=== PATIENT | female | born 1970 | race Caucasian/White ===

== ENCOUNTER 2017-05-15 12:06 | Emergency (ER) | payer MEDICAID, OTHER ==
[~2017-05-15] VITALS: Ht 157.5 cm; Wt 89.0 kg
[2017-05-15 12:10] VITALS: Ht 157.5 cm; Wt 89.0 kg
[2017-05-15] MEDS ORDERED: SOD CHLORIDE 0.9% 500 ML IV STA (14:04)
[2017-05-15] MEDS ORDERED: HYDROmorphONE 1 MG/ML SYG IV STA (14:04)
[2017-05-15] MEDS ORDERED: ONDANSETRON 4 MG INJ IV STA (14:04)
[2017-05-15 15:24] LABS: ADD UMIC NO; UR ASCORBIC ACID NEGATIVE (NEGATIVE); UR BILIRUBIN (Dip) NEGATIVE (NEGATIVE); UR BLOOD (Dip) NEGATIVE (NEGATIVE); UR CLARITY CLEAR (CLEAR); UR COLOR STRAW (YELLOW); UR GLUCOSE (Dip) NEGATIVE (NEGATIVE); UR KETONES (Dip) NEGATIVE (NEGATIVE); UR LEUKOCYTE ESTERASE (Dip) NEGATIVE Leu/ul (NEGATIVE); UR NITRITE (Dip) NEGATIVE (NEGATIVE); UR SPECIFIC GRAVITY (Dip) 1.006 (1.003-1.030); UR TOTAL PROTEIN (Dip) NEGATIVE (NEGATIVE); UR UROBILINOGEN (Dip) NEGATIVE (NEGATIVE)
[2017-05-15 15:39] LABS: BASOPHIL # 0.1 10^3/ul (0.0-0.1); BASOPHILS % 0.5 % (0.0-2.0); EOSINOPHILS # 0.3 10^3/ul (0.0-0.5); EOSINOPHILS % 2.5 % (0.0-7.0); HEMATOCRIT 40.6 % (37.0-47.0); HEMOGLOBIN 13.7 g/dl (12.0-16.0); LYMPHOCYTES # 3.6 10^3/ul (0.8-2.9); LYMPHOCYTES % 36.4 % (15.0-51.0); MEAN CORPUSCULAR HEMOGLOBIN 30.2 pg (29.0-33.0); MEAN CORPUSCULAR HGB CONC 33.7 g/dl (32.0-37.0); MEAN CORPUSCULAR VOLUME 89.4 fl (82.0-101.0); MEAN PLATELET VOLUME 10.1 fl (7.4-10.4); MONOCYTE # 0.6 10^3/ul (0.3-0.9); MONOCYTES % 6.5 % (0.0-11.0); NEUTROPHIL # 5.3 10^3/ul (1.6-7.5); NEUTROPHILS % 53.8 % (39.0-77.0); PLATELET COUNT 287 10^3/UL (140-415); RED BLOOD COUNT 4.54 10^6/ul (4.20-5.40); RED CELL DISTRIBUTION WIDTH 13.3 % (11.5-14.5); WHITE BLOOD COUNT 9.8 10^3/ul (4.8-10.8)
[2017-05-15 15:59] LABS: ALBUMIN 4.5 g/dl (3.3-4.9); ALBUMIN/GLOBULIN RATIO 1.28; CALCIUM 9.3 mg/dl (8.4-10.2); CREATININE 0.74 mg/dl (0.44-1.00); POTASSIUM 3.8 mmol/L (3.5-5.1)
[2017-05-15] MEDS ORDERED: SOD CHLORIDE 0.9% 100 ML ONE (16:42)
[2017-05-15] MEDS ORDERED: IOHEXOL 300MG/ML 150 ML BTL ONE (16:42)
--- NOTE | 2017-05-15 17:05 | RADRPT ---
PROCEDURE: CT Abdomen and Pelvis with contrast. CLINICAL INDICATION: Right lower quadrant pain TECHNIQUE: CT scan of the abdomen and pelvis with contrast was performed on a multi-detector high- resolution CT scanner. The patient was scanned following the uncomplicated intravenous administrati on of 100 cc of Omnipaque 300. Coronal and sagittal reformatted images were obtained from the axial source images. Images were reviewed on a high-resolution PACS workstation. The total exam CTDI equa ls 14.95 mGy and the total exam DLP equals 843.44 mGy-cm. One or more of the following dose reduction techniques were used: Automated exposure control. Adjustment of the mA and/or kV according to patient size. Use of iterative reconstruction technique. COMPARISON: None. FINDINGS: CT abdomen: The lung bases are clear. The heart size is normal, without pericardial thickening or effusion. There is hepatomegaly with fatty infiltration. The spleen is normal in size and homogeneous in densi ty. The stomach is partially collapsed, but is grossly unremarkable. The pancreas as visualized is normal. The gallbladder is unremarkable. There is no evidence for biliary dilatation. The adrena l glands are symmetric and normal. The kidneys are symmetrically unremarkable as well. No renal ca lculus or obstructive uropathy or mass lesion is seen. The aorta is of normal caliber. There is no retroperitoneal lymphadenopathy. The nazario hepatis ny on is clear. The bowel and mesentery, as visualized, are equally unremarkable. CT pelvis: The small bowel loops situated within the pelvis are unremarkable. The appendix is normal. There is approximately 2.1 cm fat density lesion in the right adnexa. The pelvic sidewalls and inguinal ny ons are clear. The sigmoid colon and rectum are unremarkable. No mass, lymphadenopathy, or free fl uid is seen. No acute inflammation is seen. The bladder is normal. The surrounding osseous structu res are unremarkable. No osteolytic or osteoblastic lesion is detected. IMPRESSION: 1. No concerning mass, lymphadenopathy, or focal acute inflammatory process is identified. 2. Normal appendix. 3. Hepatomegaly with fatty infiltration. 4. Right adnexal small dermoid cyst. RPTAT: BB .Teja Smith MD, MD Date Time Electronically viewed and signed by .Teja Smith MD, on 05/15/2017 17:04 .O/
[2017-05-15] MEDS ORDERED: HYDR-902 PO (17:30)
[2017-05-15] MEDS ORDERED: IBUP800T25 PO (17:30)
--- NOTE | 2017-05-15 17:33 | ERD ---
ER Documentation Chief Complaint Date/Time DATE: 05/15/17 TIME: 17:30 Chief Complaint AP X 9 DAYS, RAD RIGHT LEG AND BACK, SEEN AT [facility] C/O SAME HPI This is a 46-year-old female complains of right lower quadrant pain described as dull and sometimes sharp and radiates down to the right thigh for the past week. She has no nausea vomiting diarrhea no fever no anorexia. Pain is sometimes worse with walking. She has no chest pain or shortness of breath no dysuria or hematuria. Patient was seen in outside emergency department earlier in the week for the same symptoms but had no diagnosis ROS All systems reviewed and are negative except as per history of present illness. Medications Home Meds Active Scripts Ibuprofen* (Motrin*) 800 Mg Tab, 800 MG PO Q6H Y for PAIN AND OR ELEVATED TEMP, #30 TAB Prov:CHANELLE PATEL DO 05/15/17 Hydrocodone/Acetaminophen ([place] 10-325 Tablet) 1 Each Tablet, 1 TAB PO Q6H Y for PAIN, #20 TAB Prov:CHANELLE PATEL DO 05/15/17 PMhx/Soc Medical and Surgical Hx: pt denies Medical Hx, pt denies Surgical Hx History of Surgery: No Anesthesia Reaction: No Hx Neurological Disorder: No Hx Respiratory Disorders: No Hx Cardiac Disorders: No Hx Psychiatric Problems: No Hx Miscellaneous Medical Probl: No Hx Alcohol Use: No Hx Substance Use: No Hx Tobacco Use: No Smoking Status: Never smoker FmHx Family History: No coronary disease Physical Exam Vitals Vital Signs Date Time Temp Pulse Resp B/P Pulse Ox O2 Delivery O2 Flow Rate FiO2 05/15/17 12:10 98.1 79 20 149/79 99 Physical Exam Const: Well-developed, well-nourished Head: Atraumatic, normocephalic Eyes: Normal Conjunctiva, PERRLA, EOMI, normal sclera, no nystagmus ENT: Normal External Ears, Nose and Mouth, moist mucus membranes. Neck: Full range of motion. No meningismus, no lymphadenopathy. Resp: Clear to auscultation bilaterally, no wheezing, rhonchi, rales Cardio: Regular rate and rhythm, no murmurs, S1 S2 present Abd: Soft, may be mild to moderate right lower quadrant tenderness right adnexal tenderness, non distended. Normal bowel sounds, no guarding or rebound, no pulsitile abdominal masses or bruits Skin: No petechiae or rashes, no ecchymosis , no maculopapular rash Back: No midline or flank tenderness Ext: No cyanosis, or edema, FROM x 4, normal inspection, neurovascularly intact x 4 Neur: Awake and alert, STR 5/5 x 4, sensation intact x 4, no focal findings, cerebellum intact Psych: Normal Mood and Affect Result Diagram: 05/15/17 1500 05/15/17 1500 Results 24 hrs Laboratory Tests Test 05/15/17 14:55 05/15/17 15:00 Urine Color STRAW Urine Clarity CLEAR Urine pH 6.0 Urine Specific [place] 1.006 Urine Ketones NEGATIVEmg/dL Urine Nitrite NEGATIVEmg/dL Urine Bilirubin NEGATIVEmg/dL Urine Urobilinogen NEGATIVEmg/dL Urine Leukocyte Esterase NEGATIVELeu/ul Urine Hemoglobin NEGATIVEmg/dL Urine Glucose NEGATIVEmg/dL Urine Total Protein NEGATIVEmg/dl White Blood Count 9.810^3/ul Red Blood Count 4.5410^6/ul Hemoglobin 13.7g/dl Hematocrit 40.6% Mean Corpuscular Volume 89.4fl Mean Corpuscular Hemoglobin 30.2pg Mean Corpuscular Hemoglobin Concent 33.7g/dl Red Cell Distribution Width 13.3% Platelet Count 35472^3/UL Mean Platelet Volume 10.1fl Neutrophils % 53.8% Lymphocytes % 36.4% Monocytes % 6.5% Eosinophils % 2.5% Basophils % 0.5% Nucleated Red Blood Cells % 0.0/100WBC Neutrophils # 5.310^3/ul Lymphocytes # 3.610^3/ul Monocytes # 0.610^3/ul Eosinophils # 0.310^3/ul Basophils # 0.110^3/ul Nucleated Red Blood Cells # 0.010^3/ul Sodium Level 142mmol/L Potassium Level 3.8mmol/L Chloride Level 105mmol/L Carbon Dioxide Level 27mmol/L Anion Gap 14 Blood Urea Nitrogen 12mg/dl Creatinine 0.74mg/dl Glucose Level 87mg/dl Calcium Level 9.3mg/dl Total Bilirubin 0.0mg/dl Direct Bilirubin 0.00mg/dl Indirect Bilirubin 0.0mg/dl Aspartate Amino Transf (AST/SGOT) 25IU/L Alanine Aminotransferase (ALT/SGPT) 63IU/L Alkaline Phosphatase 81IU/L Total Protein 8.0g/dl Albumin 4.5g/dl Globulin 3.50g/dl Albumin/Globulin Ratio 1.28 Current Medications Medications (Trade) Dose Ordered Sig/Tea Route PRN Reason Start Time Stop Time Status Last Admin Dose Admin Sodium Chloride (NS) 500 ml @ 500 mls/hr Q1H STAT IV 05/15/17 14:04 05/15/17 15:03 DC 05/15/17 15:06 Hydromorphone HCl (Dilaudid) 1 mg ONCE STAT IV 05/15/17 14:04 05/15/17 14:06 DC 05/15/17 15:07 Ondansetron HCl (Zofran Inj) 4 mg ONCE STAT IV 05/15/17 14:04 05/15/17 14:06 DC 05/15/17 15:07 IV Flush 10 ml 10 ml STK-MED ONCE .ROUTE 05/15/17 16:42 05/15/17 16:43 DC 05/15/17 17:18 Sodium Chloride (NS) 100 ml @ ud STK-MED ONCE .ROUTE 05/15/17 16:42 05/15/17 16:43 DC 05/15/17 17:18 Iohexol (Omnipaque 300mg/ ml) 150 ml STK-MED ONCE .ROUTE 05/15/17 16:42 05/15/17 16:43 DC 05/15/17 17:18 Procedures/MDM PROCEDURE: CT Abdomen and Pelvis with contrast. CLINICAL INDICATION: Right lower quadrant pain TECHNIQUE: CT scan of the abdomen and pelvis with contrast was performed on a multi-detector high-resolution CT scanner. The patient was scanned following the uncomplicated intravenous administration of 100 cc of Omnipaque 300. Coronal and sagittal reformatted images were obtained from the axial source images. Images were reviewed on a high-resolution PACS workstation. The total exam CTDI equals 14.95 mGy and the total exam DLP equals 843.44 mGy-cm. One or more of the following dose reduction techniques were used: Automated exposure control. Adjustment of the mA and/or kV according to patient size. Use of iterative reconstruction technique. COMPARISON: None. FINDINGS: CT abdomen: The lung bases are clear. The heart size is normal, without pericardial thickening or effusion. There is hepatomegaly with fatty infiltration. The spleen is normal in size and homogeneous in density. The stomach is partially collapsed, but is grossly unremarkable. The pancreas as visualized is normal. The gallbladder is unremarkable. There is no evidence for biliary dilatation. The adrenal glands are symmetric and normal. The kidneys are symmetrically unremarkable as well. No renal calculus or obstructive uropathy or mass lesion is seen. The aorta is of normal caliber. There is no retroperitoneal lymphadenopathy. The nazario hepatis region is clear. The bowel and mesentery, as visualized, are equally unremarkable. CT pelvis: The small bowel loops situated within the pelvis are unremarkable. The appendix is normal. There is approximately 2.1 cm fat density lesion in the right adnexa. The pelvic sidewalls and inguinal regions are clear. The sigmoid colon and rectum are unremarkable. No mass, lymphadenopathy, or free fluid is seen. No acute inflammation is seen. The bladder is normal. The surrounding osseous structures are unremarkable. No osteolytic or osteoblastic lesion is detected. IMPRESSION: 1. No concerning mass, lymphadenopathy, or focal acute inflammatory process is identified. 2. Normal appendix. 3. Hepatomegaly with fatty infiltration. 4. Right adnexal small dermoid cyst. RPTAT: BB .Teja Smith MD, MD Date Time Electronically viewed and signed by .Teja Smith MD, MD on 05/15/2017 17:04 .O/ CC: CHANELLE PATEL DO No evidence of appendicitis. The patient does have a small dermoid ovarian cyst on the right. Discussed the importance of follow-up with this with the patient for his potential to develop into ovarian cancer. Discharge home with Motrin and [place] Departure Diagnosis: Primary Impression: Ovarian cyst Laterality: right Qualified Code: N83.201 - Cyst of right ovary Additional Impression: Right lower quadrant pain Condition: Stable Patient Instructions: Ovarian Cyst Additional Instructions: you must see your [employer] for a right dermoid ovarian cyst as soon as possible CHANELLE PATEL DO May 15, 2017 17:33
== END 2017-05-15 18:13 | disposition home or self-care (01) ==
LOC: FTE 12:06
DX: N83.201 Unspecified ovarian cyst, right side (principal)
CPT/HCPCS: 36415; 74177; 80053; 81003; 85025; 96374; 96375; J1170; J2405; J7040; Q9967; Z7502; Z7610